=== PATIENT | female | born 1985 | race Hispanic/Latino ===

== ENCOUNTER → 2024-11-29 | Day surgery (SDC) | payer OTHER ==
[~2024-11-29] MED LIST: BIOTIN5 MG PO; CETIRIZINE HCL10 MG PO; FAMOTIDINE20 MG PO; FENTANYL CITRATE/PF 100MCG/2 ML INJ ONE; HYOSCYAMINE SULFATE 0.5 MG/ML INJ ONE; LEVOTHYROXINE50 MCG PO; LO LOESTRIN FE1 EACH PO; PROPOFOL IV EMULSION 50 ML IV ONE
[2024-11-29] MEDS: LACTATED RINGER'S 1,000 ML ONE (09:38)
[2024-11-29 12:05] VITALS: TEMP 98.5
[2024-11-29 12:20] VITALS: BP 116/79; PULSE 89; RESP 15; O2SAT 99
== END | disposition home or self-care (01) ==
LOC: OR 08:33
PROVIDERS: ATTEND Internal Medicine Gastroenterology
DX: E61.1 Iron deficiency (principal); D12.4 Benign neoplasm of descending colon; K29.50 Unspecified chronic gastritis without bleeding; K21.9 Gastro-esophageal reflux disease without esophagitis; K64.8 Other hemorrhoids; R19.8 Other specified symptoms and signs involving the digestive system and abdomen; K76.0 Fatty (change of) liver, not elsewhere classified; R82.90 Unspecified abnormal findings in urine; R79.82 Elevated C-reactive protein (CRP); E03.9 Hypothyroidism, unspecified; N20.0 Calculus of kidney; Z79.1 Long term (current) use of non-steroidal anti-inflammatories (NSAID); Z79.899 Other long term (current) drug therapy
CPT/HCPCS: 43239; 45380; 45384; 81025; J1980; J2704; J3010; J7121; 45378